=== PATIENT | female | born 1935 | race Caucasian/White ===

== ENCOUNTER 2023-07-31 20:07 | Emergency (ER) | payer MEDICARE ==
[~2023-07-31] VITALS: Ht 162.6 cm; Wt 68.5 kg
[2023-07-31 20:15] VITALS: BP_SYST 102; PULSE 71; RESP 19; TEMP 97.9; O2SAT 97
[2023-07-31 21:06] LABS: BASOPHILS % (AUTO) 0.3 % (0.0-2.0); EOSINOPHILS # (AUTO) 0.1 K/uL (0.0-0.4); EOSINOPHILS % (AUTO) 1.6 % (0.0-4.0); HEMATOCRIT 39.8 % (36-48); HEMOGLOBIN 12.9 g/dL (12.0-16.0); LYMPHOCYTES # (AUTO) 2.1 K/uL (1.0-5.5); LYMPHOCYTES % (AUTO) 30.2 % (20.5-51.5); MEAN CORPUSCULAR HEMOGLOBIN 31 pg (27-31); MEAN CORPUSCULAR HGB CONC 32 % (32-36); MEAN CORPUSCULAR VOLUME 95 fL (79.0-98.0); MONOCYTES # (AUTO) 0.7 K/uL (0.0-1.0); MONOCYTES % (AUTO) 9.7 % (1.7-9.3); NEUTROPHILS # (AUTO) 4.1 K/uL (1.8-7.7); NEUTROPHILS % (AUTO) 58.2 % (40.0-70.0); PLATELET COUNT (AUTO) 177 K/uL (130-430); RED CELL DISTRIBUTION WIDTH 14.5 % (9.0-15.0)
[2023-07-31 21:23] VITALS: BP_SYST 117; PULSE 74; RESP 18; TEMP 98.3; O2SAT 97
[2023-07-31 21:24] LABS: ANION GAP 9 (5-15); CALCIUM 9.1 mg/dL (8.4-11.0); CARBON DIOXIDE 26 mmol/L (23-29); CHLORIDE 107 mmol/L (98-107); CREATININE 0.88 mg/dL (0.55-1.30); GLUCOSE 122 mg/dL (74-106); SODIUM SERUM 142 mmol/L (136-145); UREA NITROGEN, BLOOD 16 mg/dL (8-21)
[2023-07-31 21:46] LABS: PROTHROMBIN TIME 10.3 SECS (9.5-12.5)
== END 2023-07-31 22:25 | disposition home or self-care (01) ==
LOC: SED 20:07
DX: G45.9 Transient cerebral ischemic attack, unspecified (principal); R55 Syncope and collapse; R11.10 Vomiting, unspecified; J44.9 Chronic obstructive pulmonary disease, unspecified; Z79.899 Other long term (current) drug therapy
CPT/HCPCS: 36415; 70450-TC; 76376; 80048; 84484; 85025; 85610-TC; 85730-TC; 93005; 99284